=== PATIENT | male | born 1995 | race Caucasian/White ===

== ENCOUNTER 2021-03-23 18:32 | Emergency (ER) | payer SELFPAY ==
[2021-03-23 18:40] VITALS: BP 116/67; PULSE 82; RESP 16; TEMP 37.6; O2SAT 98
[2021-03-23 18:51] VITALS: BP 116/67; PULSE 82; RESP 16; TEMP 37.6; O2SAT 98
--- NOTE | 2021-03-23 18:52 | ED_ITS ---
HPI - Skin/Abscess/Foreign Bdy General Chief complaint: Skin/Abscess/Foreign Body Stated complaint: Open sore on right Arm also pain and itching Source: patient and RN notes reviewed Limitations: no limitations History of Present Illness HPI narrative: The patient, previously mostly healthy, presents with skin eruption. Patient states he has a shorter couple day history of pimply bug bite , on his right arm. Symptoms are mild, worse with scratching and associate with scant discharge. No fever, abscess/induration, other/prior eruptions Related Data Allergies Allergy/AdvReac Type Severity Reaction Status Date / Time No Known Allergies Allergy Mild Verified 03/23/21 18:38 Review of Systems Review of Systems: Narrative: General/Constitutional: No weight loss,fever Ears/Nose/Throat: No: Epistaxis,ear discharge Gastrointestinal: No Vomiting, Bleeding-rectal Skin: No Lumps, REPORTS eruption Neurologic: No Focal Weakness,Sz Hematologic: Denies: Petechiae/Purpura PMFSH Comments At time of signature, agree with nursing past medical, surgical, social and family history. There is no relevant family history pertinent to the presenting complaint Exam Narrative: Exam Narrative: General Appearance: Well appearing, , Conjunctiva clear Mouth/Throat: Normal appearing, Normal lipsk: Supple Respiratory: Airway patent, No respiratory distress Musculoskeletal: Full ROM; Warm, Dry, smaller inflamed excoriated follicle right forearm w/o abscess Neurological: A&O x3, Normal affect Course Vital Signs Vital signs: Vital Signs Temperature 99.6 F 03/23/21 18:40 Pulse Rate 82 03/23/21 18:40 Respiratory Rate 16 03/23/21 18:40 Blood Pressure 116/67 03/23/21 18:40 Pulse Oximetry 98 03/23/21 18:40 Temperature 99.6 F 03/23/21 18:51 Pulse Rate 82 03/23/21 18:51 Respiratory Rate 16 03/23/21 18:51 Blood Pressure 116/67 03/23/21 18:51 Pulse Oximetry 98 03/23/21 18:51 Discharge Plan Discharge Clinical Impression: Folliculitis Patient Disposition: Home, Self-Care Condition: Stable Instructions: Folliculitis (ED) Prescriptions: New clindamycin HCl 300 mg capsule 300 mg PO TID Qty: 15 RF: 0 mupirocin 2 % ointment 1 applic TOPICAL TID Qty: 30 RF: 0 Follow-up/Referrals: PHYSICIAN,LEAD TECHNICAL WRITER [Primary Care Provider] -
== END 2021-03-23 18:55 | disposition home or self-care (01) ==
PROVIDERS: Emergency Provider Emergency Medicine
DX: L73.9 Follicular disorder, unspecified (principal)
CPT/HCPCS: 99213; G0463

== ENCOUNTER 2024-02-14 20:21 | Emergency (ER) | payer SELFPAY ==
--- NOTE | ~2024-02-14 | XR_ITS ---
EXAM: XR hand RT min 3V DATE: 02/14/2024 20:45 HISTORY: crush injury to 3rd digit on right hand . COMPARISON: None available. FINDINGS: Normal mineralization. No fracture or dislocation. No lytic or blastic lesion. Joint space s are maintained. No erosion or periosteal change. Soft tissues within normal limits. IMPRESSION: No acute osseous finding in the right hand. Reviewed, dictated and finalized at location K.
[2024-02-14 20:29] VITALS: BP 102/49; PULSE 66; RESP 16; TEMP 36.2; O2SAT 99
--- NOTE | 2024-02-14 20:49 | ED.GENADULT ---
HPI - General Adult General Chief complaint: Extremity Injury, Upper Stated complaint: finger injury Time Seen by Provider: 02/14/24 20:39 Source: patient Mode of arrival: ambulatory Limitations: no limitations History of Present Illness HPI narrative: This is a 28-year-old male who presents to the ED for chief complaint of laceration injury to the right middle finger. Reports that he was working on a car engine and the finger got caught between the engine and a kieran system. Reports laceration to the palmar side of the right middle finger. During the triage process, patient saw the wound and became pale and diaphoretic. He is feeling better at this time. Denies any further sites of pain or injury. Unsure of tetanus status Related Data Allergies Allergy/AdvReac Type Severity Reaction Status Date / Time No Known Allergies Allergy Mild Verified 03/23/21 18:38 Review of Systems Review of Systems: All systems as dictated in HPI Exam Narrative: GENERAL: Well-appearing, well-nourished, and in no acute distress. HEAD: Normocephalic, atraumatic. EYES: PERRLA and EOMI. ENT: Nares clear, no rhinorrhea or epistaxis. Mucous membranes moist. Oropharynx without tonsillar hypertrophy exudate or other lesions. NECK: Supple. No adenopathy or masses. CHEST: No respiratory distress. Clear to auscultation. No wheezes rales or rhonchi HEART: Regular rate and rhythm. No murmur heard. Normal peripheral pulses. ABDOMEN: Soft, nontender, nondistended, normal active bowel sounds. MSK: Normal range of motion. No edema. SKIN: 2 cm palmar laceration to the right middle finger. Bleeding controlled NEURO: Alert and oriented x3. No focal deficits. PSYCH: Normal mood and affect. Course Vital Signs Vital signs: Vital Signs Temperature 97.2 F L 02/14/24 20:29 Pulse Rate 66 02/14/24 20:29 Respiratory Rate 16 02/14/24 20:29 Blood Pressure 102/49 L 02/14/24 20:29 Pulse Oximetry 99 02/14/24 20:29 Oxygen Delivery Room Air 02/14/24 20:29 Temperature 97.2 F L 02/14/24 20:29 Pulse Rate 81 02/14/24 22:29 Respiratory Rate 16 02/14/24 22:29 Blood Pressure 123/81 02/14/24 22:29 Pulse Oximetry 98 02/14/24 22:29 Oxygen Delivery Room Air 02/14/24 20:29 Procedures Laceration Laceration 1: Date: 02/14/24 Time: 22:13 Site: hand Side (If applicable): right Size (cm): 2 Description: linear Depth: simple, single layer Local Anesthetic: lidocaine 1% Amount of anesthesia used (mL): 2 Pre-repair: wound explored and irrigated extensively ====== Skin Level ====== Skin layer closed with: nylon Size (cm): 4-0 Number of sutures: 2 Technique: simple, interrupted ====== Subcutaneous Layer ====== ====== Muscle Layer ====== ====== Tendon Layer ====== Dressing: Non adherent pad, finger splint Medical Decision Making MDM Narrative Medical decision making narrative: This is a 28-year-old male who presents to the ED with chief complaint of laceration to the right middle finger. Vitals are normal. Exam remarkable for the above. The hands are quite soiled. The wound was well cleansed and irrigated here. X-rays are negative for any acute findings. Closed primarily with Ethilon sutures. Laceration instructions given. Rx for short course of prophylactic antibiotics given. Pt will be discharged in stable condition. Return precautions given and supportive measures discussed. Pt is understanding and agreeable with plan for discharge and follow-up with PCP. Vital Signs Vital Signs: Vital Signs Temperature 97.2 F L 02/14/24 20:29 Pulse Rate 66 02/14/24 20:29 Respiratory Rate 16 02/14/24 20:29 Blood Pressure 102/49 L 02/14/24 20:29 Pulse Oximetry 99 02/14/24 20:29 Oxygen Delivery Room Air 02/14/24 20:29 Temperature 97.2 F L 02/14/24 20:29 Pulse Rate 81
[2024-02-14] MEDS: TETANUS,DIPHTHERIA,AC PERTUSSIS ADULT (0.5 ML) BOOSTRIX IM (22:28)
[2024-02-14 22:29] VITALS: BP 123/81; PULSE 81; RESP 16; O2SAT 98
== END 2024-02-14 22:38 | disposition home or self-care (01) ==
PROVIDERS: Emergency Provider Physician Assistant
DX: S61.212A Laceration without foreign body of right middle finger without damage to nail, initial encounter (principal); W23.0XXA Caught, crushed, jammed, or pinched between moving objects, initial encounter; Z23 Encounter for immunization
CPT/HCPCS: 12001; 73130; 90471; 90715; 99283